=== PATIENT | female | born 1985 | race Caucasian/White ===

== ENCOUNTER 2017-03-01 18:04 | Emergency (ER) | payer SELFPAY ==
[~2017-03-01] VITALS: Ht 162.6 cm; Wt 63.5 kg
[2017-03-01 18:12] VITALS: BP 205/130
[2017-03-01] MEDS ORDERED: ATEN100T6 PO (18:15)
--- NOTE | 2017-03-01 18:27 | NUR ---
Patient ambulated to bed 05.
[2017-03-01 18:30] VITALS: BP 196/137
--- NOTE | 2017-03-01 18:30 | NUR ---
31F BIB SELF C/O BL UPPER ABDOMINAL PAIN, NON-RADIATING, SHARP, 8/10 X 2 HOURS PRIOR TO ARRIVAL TO ER AFTER EATING CHEESY POTATOES; PT C/O VOMITING, BUT DENIES DIARRHEA AT THIS TIME; ABDOMEN SOFT, NON-TENDER, ACTIVE BOWEL SOUNDS X 4 QUADRANTS; PT A&OX4, PERRLA, BL LUNG SOUNDS CLEAR, RR EVEN/UNLABORED, SKIN IS WARM/DRY/INTACT AT THIS TIME; PT RESTING IN BED W/ HOB ELEVATED AND IN LOWEST POSITION; POSITIONED FOR COMFORT; ER MD MADE AWARE OF STATUS. WILL CONTINUE TO MONITOR.
--- NOTE | 2017-03-01 18:32 | NUR ---
Dr. Mckeon evaluating patient at bedside.
[2017-03-01] MEDS ORDERED: MORPHINE SULFATE 4 MG/ML SYR IM ONE (18:40)
[2017-03-01] MEDS ORDERED: DICYCLOMINE HCL LIQUID 20 MG, ALUMINUM HYD/MAG/SIMETHICONE 30 ML, LIDOCAINE VISCOUS 2% ... PO ONE ×3 (19:15)
[2017-03-01] MEDS ORDERED: ONDANSETRON 4 MG ODT PO ONE (19:15)
--- NOTE | 2017-03-01 19:15 | NUR ---
REPORT RECEIVED FROM STEPHEN KOO
--- NOTE | 2017-03-01 19:19 | NUR ---
Pt report given to STEPHEN GARCIA. Transfer of care at this time.
--- NOTE | 2017-03-01 19:35 | NUR ---
PATIENT ELOPED FROM FACILITY. DISCHARGE INSTRUCTIONS NOT GIVEN TO PATIENT. NOTIFIED. WRITTEN DISCHARGE INSTRUCTIONS WERE NOT GIVEN.
== END 2017-03-01 19:35 | disposition left against medical advice (07) ==
LOC: MED 18:04
DX: R10.13 Epigastric pain (principal); R11.2 Nausea with vomiting, unspecified; F17.200 Nicotine dependence, unspecified, uncomplicated
CPT/HCPCS: 81002; 81025; 99283; J2270; S0119